=== PATIENT | male | born 1935 | race African-American/Black ===

== ENCOUNTER 2017-01-09 11:26 | Inpatient (IN) | payer OTHER ==
[2017-01-09] VITALS (21 sets, daily range): BP systolic 73–140; BP diastolic 36–90
[~2017-01-09] VITALS: Ht 177.8 cm; Wt 71.0 kg
[~2017-01-09 11:26] MED LIST: GLIPIZIDE XL5 MG PO; GLUCOPHAGE500 MG PO; GLUCOTROL5 MG PO; HYDROCHLOROTHIA25 MG PO; INVOKANA300 MG PO; IRON325 MG PO; JANUVIA25 M1 PO; METOPROLOL SUCC50 MG PO; METRONIDAZOLE500 MG PO; NORVASC5 MG PO; ONGLYZA5 MG PO; ROCEPHIN 2 GM VI2 GM IV; VITAMIN D31000 UNI2 PO; Vitamin B-12 PO
[2017-01-09 13:12] LABS: CHLORIDE 98 mEq/L (99-109); POTASSIUM 3.3 mEq/L (3.7-5.4); SODIUM 132 mEq/L (136-147)
[2017-01-09 13:14] LABS: GLUCOSE 176 mg/dL (70-99)
[2017-01-09 13:15] LABS: ANION GAP 13 MEQ/L (2-14)
[2017-01-09 13:16] LABS: TOTAL BILIRUBIN 0.5 mg/dL (0.0-1.0)
[2017-01-09 13:17] LABS: ALKALINE PHOSPHATASE 64 IU/L (3-129)
[2017-01-09 13:18] LABS: GFR ESTIMATE (CALCULATED) > 59 mL/min/
[2017-01-09 13:19] LABS: HEMATOCRIT 28.3 % (38.0-50.0); MCH 21.9 PG (29.0-34.0); MCHC 32.2 G/DL (30.0-36.0); MCV 68.2 FL (86-99); MEAN PLAT.VOLUME 8.9 uM^3 (9.0-12.4); PLATELET COUNT 481 K/uL (156-360); RBC DIS.WIDTH-CV 17.4 % (11.8-14.6); RBC DIS.WIDTH-SD 42.4 % (39-53); RED BLOOD COUNT 4.15 M/uL (4.00-5.50); UREA NITROGEN (BUN) 12 mg/dL (9-23); WHITE BLOOD COUNT 12.4 K/uL (4.1-10.2)
[2017-01-09 13:21] LABS: CREATINE KINASE 579 IU/L (1-294); TOTAL CK 579 IU/L (1-294)
[2017-01-09 13:23] LABS: TROP-I INTERPRETATION POSITIVE
[2017-01-09 13:27] LABS: CK-MB 39.8 ng/mL (0.0-4.9)
[2017-01-09 13:29] LABS: TROPONIN-I 14.58 ng/mL (0.0-0.30)
[2017-01-09 15:27] LABS: METH RESISTANT S AUREUS PCR NEGATIVE (NEGATIVE); PROBE CHECK PASS; SPECIMEN PROCESSING CONTROL PASS
[2017-01-09] MEDS ORDERED: TRESIBA FL100 UNIT/1 SC (15:54)
[2017-01-09] MEDS ORDERED: JANUVIA100 MG PO (15:54)
[2017-01-09 17:15] LABS: TROP-I INTERPRETATION POSITIVE; TROPONIN-I 32.51 ng/mL (0.0-0.30)
[2017-01-09 17:57] LABS: POINT-OF-CARE METER ID UU14314083
[2017-01-09 22:49] LABS: ANION GAP 7 MEQ/L (2-14); CHLORIDE 100 MEQ/L (99-109); POTASSIUM 3.9 MEQ/L (3.7-5.4); SAMPLE HEMOLYSIS CHECK 0; SAMPLE ICTERIC CHECK 0; SAMPLE LIPEMIA CHECK 0; SODIUM 130 MEQ/L (136-147)
[2017-01-09 22:54] LABS: GFR ESTIMATE (CALCULATED) > 59 mL/min/; GLUCOSE 232 mg/dL (70-99); UREA NITROGEN (BUN) 16 mg/dL (9-23)
[2017-01-09 23:15] LABS: TROP-I INTERPRETATION POSITIVE; TROPONIN-I 29.72 ng/mL (0.0-0.30)
[2017-01-10] VITALS (32 sets, daily range): BP systolic 90–134; BP diastolic 58–81
[2017-01-10 06:38] LABS: ANION GAP 8 MEQ/L (2-14); CHLORIDE 102 MEQ/L (99-109); GFR ESTIMATE (CALCULATED) > 59 mL/min/; GLUCOSE 154 mg/dL (70-99); HDL CHOLESTEROL 42 MG/DL (Desirable>=40); LDL CHOLESTEROL 89 mg/dL (Desirable<100); NON-HDL CHOLESTEROL 100 mg/dL (Desirable<160); POTASSIUM 3.9 MEQ/L (3.7-5.4); SAMPLE HEMOLYSIS CHECK 0; SAMPLE ICTERIC CHECK 0; SAMPLE LIPEMIA CHECK 0; SODIUM 133 MEQ/L (136-147); TOTAL CHOLESTEROL 142 mg/dL (Desirable<200); TRIGLYCERIDES 56 MG/DL (Normal: <150); UREA NITROGEN (BUN) 15 mg/dL (9-23)
[2017-01-10 06:58] LABS: TROP-I INTERPRETATION POSITIVE; TROPONIN-I 29.32 ng/mL (0.0-0.30)
[2017-01-10 07:08] LABS: EOSINOPHIL (%) 0.1 % (0-5); HEMATOCRIT 25.8 % (38.0-50.0); IMMATURE GRANULOCYTE (%) 0.6 % (0.0-0.7); IMMATURE GRANULOCYTE COUNT 0.1 K/uL; INSTRUMENT ABS NEUTROPHIL CT 13.4 K/uL; LYMPHOCYTE COUNT 1.4 K/uL (1.0-2.8); MCH 22.3 PG (29.0-34.0); MCHC 32.2 G/DL (30.0-36.0); MCV 69.2 FL (86-99); MEAN PLAT.VOLUME 8.4 uM^3 (9.0-12.4); MONOCYTE COUNT 1.3 K/uL (0-0.8); NEUTROPHIL (%) 82.4 % (45-76); NEUTROPHIL COUNT 13.4 K/uL (1.8-6.4); PLATELET COUNT 426 K/uL (156-360); RBC DIS.WIDTH-CV 17.7 % (11.8-14.6); RBC DIS.WIDTH-SD 44.1 % (39-53); RED BLOOD COUNT 3.73 M/uL (4.00-5.50); WHITE BLOOD COUNT 16.3 K/uL (4.1-10.2)
[2017-01-10 07:43] LABS: POINT-OF-CARE METER ID UU13113803
[2017-01-10 08:04] LABS: Estimated Average Glucose 169 mg/dL (70-123); HEMOGLOBIN A1c (GLYCOHEMOGLOB) 7.5 % HGB (Below 5.7)
[2017-01-10 11:45] LABS: POINT-OF-CARE METER ID UU14208751
[2017-01-10 15:23] LABS: POINT-OF-CARE METER ID UU14208751
[2017-01-10 22:23] LABS: POINT-OF-CARE METER ID UU14208751
[2017-01-11] VITALS (12 sets, daily range): BP systolic 81–122; BP diastolic 55–74
[2017-01-11 05:10] LABS: CHLORIDE 107 mEq/L (99-109); POTASSIUM 4.2 mEq/L (3.7-5.4); SODIUM 135 mEq/L (136-147)
[2017-01-11 05:12] LABS: GLUCOSE 138 mg/dL (70-99)
[2017-01-11 05:13] LABS: ANION GAP 12 MEQ/L (2-14); HEMATOCRIT 32.6 % (38.0-50.0); MCH 21.8 PG (29.0-34.0); MCV 70.4 FL (86-99); RBC DIS.WIDTH-CV 18.2 % (11.8-14.6); RBC DIS.WIDTH-SD 45.6 % (39-53)
[2017-01-11 05:16] LABS: GFR ESTIMATE (CALCULATED) > 59 mL/min/
[2017-01-11 05:17] LABS: UREA NITROGEN (BUN) 22 mg/dL (9-23)
[2017-01-11 05:42] LABS: RED BLOOD COUNT 4.63 M/uL (4.00-5.50)
[2017-01-11 05:56] LABS: MEAN PLAT.VOLUME 8.8 uM^3 (9.0-12.4); PLAT.SUFFICIENCY ADEQUATE; PLATELET COUNT 382 K/uL (156-360)
[2017-01-11 07:02] LABS: BILIRUBIN NEGATIVE; BLOOD NEGATIVE; COLOR YELLOW ((YELLOW)); GLUCOSE (STRIP) NEGATIVE; KETONES NEGATIVE; LEUKOCYTES NEGATIVE; NITRITE NEGATIVE; PROTEIN (STRIP) 30; SPECIFIC GRAVITY 1.026 (1.000-1.030)
[2017-01-11 07:05] LABS: ADD MIUA? NO; UCUL ADDED? NO
[2017-01-11 12:21] LABS: POINT-OF-CARE METER ID UU14208751
[2017-01-11 16:02] LABS: POINT-OF-CARE METER ID UU14208751
[2017-01-11 20:44] LABS: POINT-OF-CARE METER ID UU13113781
[2017-01-12] VITALS (7 sets, daily range): BP systolic 98–128; BP diastolic 56–94
[2017-01-12 06:34] LABS: HEMATOCRIT 22.4 % (38.0-50.0); MCH 21.5 PG (29.0-34.0); MCHC 31.7 G/DL (30.0-36.0); MCV 67.9 FL (86-99); MEAN PLAT.VOLUME 8.6 uM^3 (9.0-12.4); PLATELET COUNT 399 K/uL (156-360); RBC DIS.WIDTH-CV 17.5 % (11.8-14.6); RBC DIS.WIDTH-SD 42.9 % (39-53); WHITE BLOOD COUNT 8.6 K/uL (4.1-10.2)
[2017-01-12 06:52] LABS: ANION GAP 8 MEQ/L (2-14); CHLORIDE 107 MEQ/L (99-109); GFR ESTIMATE (CALCULATED) > 59 mL/min/; GLUCOSE 128 mg/dL (70-99); POTASSIUM 3.6 MEQ/L (3.7-5.4); SAMPLE HEMOLYSIS CHECK 0; SAMPLE ICTERIC CHECK 0; SAMPLE LIPEMIA CHECK 0; SODIUM 136 MEQ/L (136-147); UREA NITROGEN (BUN) 24 mg/dL (9-23)
[2017-01-12 07:44] LABS: POINT-OF-CARE METER ID UU13113698
[2017-01-12 11:27] LABS: POINT-OF-CARE METER ID UU14314088
[2017-01-12 16:49] LABS: POINT-OF-CARE METER ID UU14314088
[2017-01-12 21:20] LABS: POINT-OF-CARE METER ID UU13113698
[2017-01-13 04:31] VITALS: BP 120/69
[2017-01-13 05:39] LABS: HEMATOCRIT 22.4 % (38.0-50.0); MCH 21.7 PG (29.0-34.0); MCHC 31.7 G/DL (30.0-36.0); MCV 68.5 FL (86-99); MEAN PLAT.VOLUME 8.4 uM^3 (9.0-12.4); PLATELET COUNT 392 K/uL (156-360); RBC DIS.WIDTH-CV 17.5 % (11.8-14.6); RBC DIS.WIDTH-SD 43.4 % (39-53); RED BLOOD COUNT 3.27 M/uL (4.00-5.50); WHITE BLOOD COUNT 7.4 K/uL (4.1-10.2)
[2017-01-13 05:47] LABS: ANION GAP 4 MEQ/L (2-14); CHLORIDE 108 MEQ/L (99-109); GFR ESTIMATE (CALCULATED) > 59 mL/min/; GLUCOSE 135 mg/dL (70-99); POTASSIUM 3.5 MEQ/L (3.7-5.4); SAMPLE HEMOLYSIS CHECK 0; SAMPLE ICTERIC CHECK 0; SAMPLE LIPEMIA CHECK 0; SODIUM 133 MEQ/L (136-147); UREA NITROGEN (BUN) 22 mg/dL (9-23)
[2017-01-13 07:35] VITALS: BP 114/65
[2017-01-13 07:55] LABS: POINT-OF-CARE METER ID UU14314088
[2017-01-13] MEDS ORDERED: LOPRESSOR25 MG PO ×2 (10:47→13:25)
[2017-01-13] MEDS ORDERED: ASPIR-LOW81 MG PO (10:47)
[2017-01-13] MEDS ORDERED: FERROUS SULFAT325 MG PO (10:47)
[2017-01-13] MEDS ORDERED: CLOPIDOGREL75 MG PO (10:47)
[2017-01-13] MEDS ORDERED: ATORVASTATIN CA80 MG PO (10:47)
[2017-01-13] MEDS ORDERED: NITROSTAT0.4 MG SL (10:47)
[2017-01-13 11:39] LABS: POINT-OF-CARE METER ID UU14314088
[2017-01-13 12:30] VITALS: BP 119/62
== END 2017-01-13 15:00 | disposition home health service (06) | DRG 247 ==
LOC: EME 11:26 → EDBD 11:26 → CATH 12:18 → EME 12:18 → ENRESERV 12:51 → 4EAST 13:06 → 2SOUTH 13:06 → 4WEST 13:06 → ENRESERV 01-11 14:42 → 4EAST 01-11 17:41
PROVIDERS: Internal Medicine Cardiovascular Disease
DX: I21.19 ST elevation (STEMI) myocardial infarction involving other coronary artery of inferior wall (principal); I25.10 Atherosclerotic heart disease of native coronary artery without angina pectoris; I12.9 Hypertensive chronic kidney disease with stage 1 through stage 4 chronic kidney disease, or unspecified chronic kidney disease; N18.3 Chronic kidney disease, stage 3 (moderate); D51.9 Vitamin B12 deficiency anemia, unspecified; E11.22 Type 2 diabetes mellitus with diabetic chronic kidney disease; D50.9 Iron deficiency anemia, unspecified; E78.5 Hyperlipidemia, unspecified; E83.51 Hypocalcemia; I44.1 Atrioventricular block, second degree; E83.39 Other disorders of phosphorus metabolism; I95.9 Hypotension, unspecified
CPT/HCPCS: 71010; 71020; 80048; 80048 91; 80053; 80061; 81003; 82550; 82553; 82948; 83036; 83735; 84100; 84443; 84484; 85025; 85027; 85347; 87641; 90686; 93005; 93306; 94799; 99281; 99285; C1725; C1769; C1874; C1887; J0153; J1644; J1815; J2250; J2405; J3010; J3246; J7030; J7040

== ENCOUNTER 2017-05-11 14:34 | Inpatient (IN) | payer OTHER ==
[~2017-05-11] VITALS: Ht 177.8 cm; Wt 69.7 kg
[~2017-05-11 14:34] MED LIST changes: +ASPIR-LOW81 MG PO; +ATORVASTATIN CA80 MG PO; +CLOPIDOGREL75 MG PO; +FERROUS SULFAT325 MG PO; +JANUVIA100 MG PO; +LOPRESSOR25 MG PO; +NITROSTAT0.4 MG SL; +TRESIBA FL100 UNIT/1 SC
[2017-05-11 15:46] LABS: HEMATOCRIT 18.1 % (38.0-50.0); MCH 18.7 PG (29.0-34.0); MCHC 29.3 G/DL (30.0-36.0); MCV 63.7 FL (86-99); NRBC (%) 0.3 /100 WBC (0-0); PLATELET COUNT 475 K/uL (156-360); RBC DIS.WIDTH-CV 18.6 % (11.8-14.6); RBC DIS.WIDTH-SD 41.5 % (39-53); RED BLOOD COUNT 2.84 M/uL (4.00-5.50)
[2017-05-11 15:47] LABS: HEMOGLOBIN 5.3 G/DL (12.5-16.6); INTER. NORMALIZED RATIO 1.3
[2017-05-11 15:49] LABS: ALBUMIN 2.3 g/dL (3.2-4.8)
[2017-05-11 15:50] LABS: CHLORIDE 112 mEq/L (99-109); POTASSIUM 4.3 mEq/L (3.7-5.4); PTT 31.6 SEC (25-37); SODIUM 139 mEq/L (136-147)
[2017-05-11 15:52] LABS: GLUCOSE 114 mg/dL (70-99); TOTAL PROTEIN 6.1 g/dL (6.4-8.3)
[2017-05-11 15:54] LABS: TOTAL BILIRUBIN 0.2 mg/dL (0.0-1.0)
[2017-05-11 15:55] LABS: ALKALINE PHOSPHATASE 90 IU/L (3-129); CREATININE 1.5 mg/dL (0.6-1.3); GFR ESTIMATE (CALCULATED) 58 mL/min/ (58.99-99999)
[2017-05-11 15:57] LABS: AST (GOT) 27 IU/L (2-34); UREA NITROGEN (BUN) 18 mg/dL (9-23)
[2017-05-11 15:58] LABS: ALT (GPT) 16 IU/L (3-49)
[2017-05-11 16:01] LABS: TROP-I INTERPRETATION NEGATIVE; TROPONIN-I 0.03 ng/mL (0.0-0.30)
[2017-05-11 17:09] VITALS: BP 145/81
[2017-05-11 17:31] VITALS: BP 130/61
[2017-05-11 19:38] VITALS: BP 142/79
[2017-05-11 19:58] VITALS: BP 140/80
[2017-05-11 20:58] VITALS: BP 150/94
[2017-05-11 21:23] VITALS: BP 113/84
[2017-05-11 23:07] LABS: HEMATOCRIT 25.7 % (38.0-50.0)
[2017-05-11 23:09] LABS: HEMOGLOBIN 7.9 G/DL (12.5-16.6); MCV 71.4 FL (86-99)
[2017-05-12 05:53] LABS: HEMATOCRIT 24.6 % (38.0-50.0); HEMOGLOBIN 7.8 G/DL (12.5-16.6); MCHC 31.7 G/DL (30.0-36.0); MCV 69.5 FL (86-99); NRBC (%) 0.4 /100 WBC (0-0); PLATELET COUNT 373 K/uL (156-360); RBC DIS.WIDTH-CV 23.5 % (11.8-14.6); RBC DIS.WIDTH-SD 56.7 % (39-53); RED BLOOD COUNT 3.54 M/uL (4.00-5.50); WHITE BLOOD COUNT 7.3 K/uL (4.1-10.2)
[2017-05-12 06:01] LABS: CHLORIDE 117 mEq/L (99-109); POTASSIUM 3.8 mEq/L (3.7-5.4); SODIUM 141 mEq/L (136-147)
[2017-05-12 06:03] LABS: GLUCOSE 85 mg/dL (70-99)
[2017-05-12 06:06] LABS: CREATININE 1.3 mg/dL (0.6-1.3); GFR ESTIMATE (CALCULATED) > 59 mL/min/ (58.99-99999)
[2017-05-12 06:07] LABS: UREA NITROGEN (BUN) 17 mg/dL (9-23)
[2017-05-12] MEDS ORDERED: CLOPIDOGREL75 MG PO (08:33)
[2017-05-12] MEDS ORDERED: LOPRESSOR25 MG PO (08:34)
[2017-05-12] MEDS ORDERED: HYDROCHLOROTHIA25 MG PO (08:34)
[2017-05-12] MEDS ORDERED: ADULT ASPIRIN R81 MG PO (08:34)
[2017-05-12 10:22] VITALS: BP 142/84
[2017-05-12 10:31] VITALS: BP 146/76
[2017-05-12 10:46] VITALS: BP 151/87
[2017-05-12 11:53] VITALS: BP 140/82
[2017-05-12 14:44] LABS: HEMATOCRIT 33.5 % (38.0-50.0); HEMOGLOBIN 10.3 G/DL (12.5-16.6); MCH 22.6 PG (29.0-34.0); MCHC 30.7 G/DL (30.0-36.0); MCV 73.6 FL (86-99); NRBC (%) 0.4 /100 WBC (0-0); PLATELET COUNT 384 K/uL (156-360); RBC DIS.WIDTH-SD 62.1 % (39-53); RED BLOOD COUNT 4.55 M/uL (4.00-5.50)
[2017-05-12 18:37] LABS: CHLORIDE 116 MEQ/L (99-109); POTASSIUM 4.2 MEQ/L (3.7-5.4); SODIUM 141 MEQ/L (136-147)
[2017-05-12 18:43] LABS: CREATININE 1.3 MG/DL (0.6-1.3); GFR ESTIMATE (CALCULATED) > 59 mL/min/ (58.99-99999); GLUCOSE 81 mg/dL (70-99); UREA NITROGEN (BUN) 15 mg/dL (9-23)
[2017-05-12 19:22] LABS: IRON 31 MCG/DL (35-150); TRANSFERRIN (TIBC) 192.2 mg/dL (215-380); TRANSFERRIN SATUR. 16 % (20-55)
[2017-05-12 19:50] VITALS: BP 152/92
[2017-05-12 20:20] LABS: FERRITIN 31 NG/ML (22-322)
[2017-05-12 20:32] LABS: HEMATOCRIT 31.1 % (38.0-50.0); HEMOGLOBIN 9.7 G/DL (12.5-16.6); MCH 22.5 PG (29.0-34.0); MCHC 31.2 G/DL (30.0-36.0); MCV 72.2 FL (86-99); NRBC (%) 0.4 /100 WBC (0-0); PLATELET COUNT 385 K/uL (156-360); RBC DIS.WIDTH-CV 23.7 % (11.8-14.6); RBC DIS.WIDTH-SD 60.9 % (39-53); RED BLOOD COUNT 4.31 M/uL (4.00-5.50); WHITE BLOOD COUNT 7.7 K/uL (4.1-10.2)
[2017-05-13 00:16] VITALS: BP 114/63
[2017-05-13 04:17] VITALS: BP 121/72
[2017-05-13 09:00] VITALS: BP 158/84
[2017-05-13 09:46] LABS: BASOPHIL (%) 0.4 % (0-1); EOSINOPHIL (%) 2.8 % (0-5); EOSINOPHIL COUNT 0.3 K/uL (0-0.3); HEMATOCRIT 34.5 % (38.0-50.0); HEMOGLOBIN 10.6 G/DL (12.5-16.6); IMMATURE GRANULOCYTE (%) 0.3 % (0.0-0.7); LYMPHOCYTE (%) 13.7 % (15-42); LYMPHOCYTE COUNT 1.4 K/uL (1.0-2.8); MCH 22.3 PG (29.0-34.0); MCHC 30.7 G/DL (30.0-36.0); MCV 72.5 FL (86-99); MONOCYTE (%) 6.9 % (3-12); MONOCYTE COUNT 0.7 K/uL (0-0.8); NEUTROPHIL (%) 75.9 % (45-76); NEUTROPHIL COUNT 7.5 K/uL (1.8-6.4); NRBC (%) 0.3 /100 WBC (0-0); PLATELET COUNT 446 K/uL (156-360); RBC DIS.WIDTH-CV 24.1 % (11.8-14.6); RBC DIS.WIDTH-SD 60.8 % (39-53); RED BLOOD COUNT 4.76 M/uL (4.00-5.50); WHITE BLOOD COUNT 9.8 K/uL (4.1-10.2)
[2017-05-13 09:59] LABS: CHLORIDE 109 MEQ/L (99-109); CREATININE 1.4 MG/DL (0.6-1.3); GFR ESTIMATE (CALCULATED) > 59 mL/min/ (58.99-99999); SODIUM 135 MEQ/L (136-147); UREA NITROGEN (BUN) 14 mg/dL (9-23)
[2017-05-13 10:04] LABS: GLUCOSE 127 mg/dL (70-99)
[2017-05-13 11:33] VITALS: BP 137/84
[2017-05-13 16:28] VITALS: BP 101/70
[2017-05-13 17:30] LABS: BASOPHIL (%) 0.2 % (0-1); EOSINOPHIL (%) 1.3 % (0-5); EOSINOPHIL COUNT 0.1 K/uL (0-0.3); HEMATOCRIT 31.4 % (38.0-50.0); HEMOGLOBIN 9.8 G/DL (12.5-16.6); IMMATURE GRANULOCYTE (%) 0.3 % (0.0-0.7); LYMPHOCYTE (%) 15.1 % (15-42); LYMPHOCYTE COUNT 1.5 K/uL (1.0-2.8); MCH 22.6 PG (29.0-34.0); MCHC 31.2 G/DL (30.0-36.0); MCV 72.4 FL (86-99); MONOCYTE (%) 5.7 % (3-12); MONOCYTE COUNT 0.6 K/uL (0-0.8); NEUTROPHIL (%) 77.4 % (45-76); NEUTROPHIL COUNT 7.5 K/uL (1.8-6.4); NRBC (%) 0.4 /100 WBC (0-0); PLATELET COUNT 407 K/uL (156-360); RBC DIS.WIDTH-SD 61.2 % (39-53); RED BLOOD COUNT 4.34 M/uL (4.00-5.50); WHITE BLOOD COUNT 9.7 K/uL (4.1-10.2)
[2017-05-13 20:05] VITALS: BP 104/66
[2017-05-14] VITALS (7 sets, daily range): BP systolic 108–143; BP diastolic 67–91
[2017-05-14 05:06] LABS: BASOPHIL (%) 0.3 % (0-1); EOSINOPHIL (%) 3.1 % (0-5); EOSINOPHIL COUNT 0.2 K/uL (0-0.3); HEMATOCRIT 29.4 % (38.0-50.0); HEMOGLOBIN 9.4 G/DL (12.5-16.6); IMMATURE GRANULOCYTE (%) 0.4 % (0.0-0.7); LYMPHOCYTE (%) 17.7 % (15-42); LYMPHOCYTE COUNT 1.3 K/uL (1.0-2.8); MCH 22.8 PG (29.0-34.0); MCV 71.2 FL (86-99); MONOCYTE (%) 6.5 % (3-12); MONOCYTE COUNT 0.5 K/uL (0-0.8); NEUTROPHIL COUNT 5.3 K/uL (1.8-6.4); NRBC (%) 0.3 /100 WBC (0-0); PLATELET COUNT 366 K/uL (156-360); RBC DIS.WIDTH-SD 60.8 % (39-53); RED BLOOD COUNT 4.13 M/uL (4.00-5.50); WHITE BLOOD COUNT 7.4 K/uL (4.1-10.2)
[2017-05-14 05:14] LABS: CHLORIDE 109 mEq/L (99-109); POTASSIUM 3.8 mEq/L (3.7-5.4); SODIUM 136 mEq/L (136-147)
[2017-05-14 05:16] LABS: GLUCOSE 114 mg/dL (70-99)
[2017-05-14 05:20] LABS: CREATININE 1.3 mg/dL (0.6-1.3); GFR ESTIMATE (CALCULATED) > 59 mL/min/ (58.99-99999)
[2017-05-14 05:21] LABS: UREA NITROGEN (BUN) 14 mg/dL (9-23)
[2017-05-15] VITALS (7 sets, daily range): BP systolic 105–133; BP diastolic 60–84
[2017-05-15 07:14] LABS: ALBUMIN 1.9 G/DL (3.2-4.8); ALKALINE PHOSPHATASE 78 IU/L (3-129); ALT (GPT) 9 IU/L (3-49); AST (GOT) 19 IU/L (2-34); CHLORIDE 106 MEQ/L (99-109); CREATININE 1.4 MG/DL (0.6-1.3); GFR ESTIMATE (CALCULATED) > 59 mL/min/ (58.99-99999); GLUCOSE 87 mg/dL (70-99); POTASSIUM 3.8 MEQ/L (3.7-5.4); SODIUM 134 MEQ/L (136-147); TOTAL PROTEIN 5.1 G/DL (6.4-8.3); UREA NITROGEN (BUN) 13 mg/dL (9-23)
[2017-05-15 07:17] LABS: BASOPHIL (%) 0.1 % (0-1); EOSINOPHIL (%) 2.9 % (0-5); EOSINOPHIL COUNT 0.2 K/uL (0-0.3); HEMATOCRIT 31.5 % (38.0-50.0); HEMOGLOBIN 9.9 G/DL (12.5-16.6); IMMATURE GRANULOCYTE (%) 0.6 % (0.0-0.7); LYMPHOCYTE (%) 14.3 % (15-42); LYMPHOCYTE COUNT 1.1 K/uL (1.0-2.8); MCH 22.7 PG (29.0-34.0); MCHC 31.4 G/DL (30.0-36.0); MCV 72.1 FL (86-99); MONOCYTE (%) 7.1 % (3-12); MONOCYTE COUNT 0.6 K/uL (0-0.8); NEUTROPHIL COUNT 5.9 K/uL (1.8-6.4); PLATELET COUNT 399 K/uL (156-360); RBC DIS.WIDTH-CV 25.4 % (11.8-14.6); RBC DIS.WIDTH-SD 62.4 % (39-53); RED BLOOD COUNT 4.37 M/uL (4.00-5.50); WHITE BLOOD COUNT 7.9 K/uL (4.1-10.2)
[2017-05-15 07:20] LABS: TOTAL BILIRUBIN 0.4 MG/DL (0.0-1.0)
[2017-05-16 07:16] VITALS: BP 136/73
[2017-05-16 07:37] LABS: BASOPHIL (%) 0.1 % (0-1); EOSINOPHIL (%) 2.7 % (0-5); EOSINOPHIL COUNT 0.2 K/uL (0-0.3); IMMATURE GRANULOCYTE (%) 0.5 % (0.0-0.7); LYMPHOCYTE (%) 15.1 % (15-42); LYMPHOCYTE COUNT 1.1 K/uL (1.0-2.8); MCH 22.4 PG (29.0-34.0); MCV 72.1 FL (86-99); MONOCYTE (%) 8.1 % (3-12); MONOCYTE COUNT 0.6 K/uL (0-0.8); NEUTROPHIL (%) 73.5 % (45-76); NEUTROPHIL COUNT 5.5 K/uL (1.8-6.4); PLATELET COUNT 351 K/uL (156-360); RBC DIS.WIDTH-CV 25.2 % (11.8-14.6); RBC DIS.WIDTH-SD 63.3 % (39-53); RED BLOOD COUNT 4.02 M/uL (4.00-5.50); WHITE BLOOD COUNT 7.5 K/uL (4.1-10.2)
[2017-05-16 07:57] LABS: ALBUMIN 1.9 G/DL (3.2-4.8); ALKALINE PHOSPHATASE 70 IU/L (3-129); ALT (GPT) 7 IU/L (3-49); AST (GOT) 19 IU/L (2-34); CHLORIDE 109 MEQ/L (99-109); CREATININE 1.4 MG/DL (0.6-1.3); GFR ESTIMATE (CALCULATED) > 59 mL/min/ (58.99-99999); SODIUM 136 MEQ/L (136-147); TOTAL PROTEIN 4.8 G/DL (6.4-8.3); UREA NITROGEN (BUN) 13 mg/dL (9-23)
[2017-05-16 07:59] LABS: GLUCOSE 138 mg/dL (70-99); TOTAL BILIRUBIN 0.3 MG/DL (0.0-1.0)
[2017-05-16] MEDS ORDERED: FERROUS SULFAT325 MG PO (11:23)
[2017-05-16] MEDS ORDERED: DUONEB 2.5-0.5 M3 ML AEROSOL (11:23)
[2017-05-16] MEDS ORDERED: PANTOPRAZOLE SO40 MG PO (11:24)
[2017-05-16] MEDS ORDERED: NOVOLOG 10100 UNITS/ SC (11:24)
[2017-05-16] MEDS ORDERED: LOPRESSOR25 MG PO (11:24)
[2017-05-16] MEDS ORDERED: SUCRALFATE1 GM/10 ML PO (11:24)
[2017-05-16 12:30] VITALS: BP 167/92
[2017-05-16 12:36] LABS: INTER. NORMALIZED RATIO 1.3
[2017-05-16 12:39] LABS: PTT 33.7 SEC (25-37)
== END 2017-05-16 14:14 | disposition short-term general hospital (02) | DRG 356 ==
LOC: EME 14:34 → 4EAST 16:33 → EDOF 16:33 → ENRESERV 16:38 → 4EAST 05-12 10:04 → ENRESERV 05-14 16:07 → 2EAST 05-14 16:46
PROVIDERS: Emergency Medicine; Hospitalist; Internal Medicine; Specialist
PROC: 30233N1 Transfusion of Nonautologous Red Blood Cells into Peripheral Vein, Percutaneous Approach (ICD-10-PCS; 2017-05-11)
PROC: 0W3P8ZZ Control Bleeding in Gastrointestinal Tract, Via Natural or Artificial Opening Endoscopic (ICD-10-PCS; principal; 2017-05-13)
PROC: 0DBL8ZZ Excision of Transverse Colon, Via Natural or Artificial Opening Endoscopic (ICD-10-PCS; principal; 2017-05-13)
PROC: 0DBK8ZZ Excision of Ascending Colon, Via Natural or Artificial Opening Endoscopic (ICD-10-PCS; principal; 2017-05-13)
PROC: 0DBN8ZX Excision of Sigmoid Colon, Via Natural or Artificial Opening Endoscopic, Diagnostic (ICD-10-PCS; principal; 2017-05-13)
PROC: 06H03DZ Insertion of Intraluminal Device into Inferior Vena Cava, Percutaneous Approach (ICD-10-PCS; 2017-05-14)
PROC: B5191ZZ Fluoroscopy of Inferior Vena Cava using Low Osmolar Contrast (ICD-10-PCS; 2017-05-14)
DX: C18.3 Malignant neoplasm of hepatic flexure (principal); I26.99 Other pulmonary embolism without acute cor pulmonale; C78.7 Secondary malignant neoplasm of liver and intrahepatic bile duct; I82.403 Acute embolism and thrombosis of unspecified deep veins of lower extremity, bilateral; I25.10 Atherosclerotic heart disease of native coronary artery without angina pectoris; K63.3 Ulcer of intestine; K56.609 Unspecified intestinal obstruction, unspecified as to partial versus complete obstruction; N18.3 Chronic kidney disease, stage 3 (moderate); K92.2 Gastrointestinal hemorrhage, unspecified; E87.2 Acidosis; N17.9 Acute kidney failure, unspecified; D62 Acute posthemorrhagic anemia; T18.2XXA Foreign body in stomach, initial encounter; E11.22 Type 2 diabetes mellitus with diabetic chronic kidney disease; D12.4 Benign neoplasm of descending colon; K63.5 Polyp of colon; K21.9 Gastro-esophageal reflux disease without esophagitis; K44.9 Diaphragmatic hernia without obstruction or gangrene; M71.21 Synovial cyst of popliteal space [Baker], right knee; E78.5 Hyperlipidemia, unspecified; R97.20 Elevated prostate specific antigen [PSA]; N28.1 Cyst of kidney, acquired; I12.9 Hypertensive chronic kidney disease with stage 1 through stage 4 chronic kidney disease, or unspecified chronic kidney disease; Z95.5 Presence of coronary angioplasty implant and graft; Z87.891 Personal history of nicotine dependence; I25.2 Old myocardial infarction; K64.8 Other hemorrhoids; Z79.02 Long term (current) use of antithrombotics/antiplatelets; Z79.82 Long term (current) use of aspirin; Z86.718 Personal history of other venous thrombosis and embolism; Z83.3 Family history of diabetes mellitus; Z82.49 Family history of ischemic heart disease and other diseases of the circulatory system
CPT/HCPCS: 36415; 71045; 71250; 74176; 74177; 78582; 80048; 80048 91; 80053; 81003; 82150; 82378; 82728; 82948; 83036; 83540; 83690; 83880 GA; 84466; 84484; 85014; 85018; 85025; 85025 91; 85027; 85610; 85730; 86850; 86900; 86901; 86920; 87177; 87493; 87506; 88305; 93005; 93306; 93970; 97530 GP; 99202; 99281; 99285; A9540; A9567; C1753; C1769; C9113; J0690; J1644; J7030; J7070; J7120; P9016

== ENCOUNTER 2017-10-09 19:41 | Inpatient (IN) | payer OTHER ==
[~2017-10-09] VITALS: Ht 177.8 cm; Wt 71.9 kg
[~2017-10-09 19:41] MED LIST changes: +ADULT ASPIRIN R81 MG PO; +DUONEB 2.5-0.5 M3 ML AEROSOL; +LOPERAMIDE2 MG PO; +NOVOLOG 10100 UNITS/ SC; +PANTOPRAZOLE SO40 MG PO; +SUCRALFATE1 GM/10 ML PO
[2017-10-09 21:26] LABS: BASOPHIL (%) 0.6 % (0-1); EOSINOPHIL (%) 4.7 % (0-5); EOSINOPHIL COUNT 0.2 K/uL (0-0.3); IMMATURE GRANULOCYTE (%) 1.4 % (0.0-0.7); LYMPHOCYTE (%) 25.6 % (15-42); LYMPHOCYTE COUNT 1.3 K/uL (1.0-2.8); MCH 25.6 PG (29.0-34.0); MCHC 32.3 G/DL (30.0-36.0); MCV 79.5 FL (86-99); MONOCYTE (%) 16.6 % (3-12); MONOCYTE COUNT 0.8 K/uL (0-0.8); NEUTROPHIL (%) 51.1 % (45-76); NEUTROPHIL COUNT 2.5 K/uL (1.8-6.4); NRBC (%) 0.4 /100 WBC (0-0); PLATELET COUNT 308 K/uL (156-360); RBC DIS.WIDTH-CV 17.6 % (11.8-14.6); RBC DIS.WIDTH-SD 50.4 % (39-53); WHITE BLOOD COUNT 4.9 K/uL (4.1-10.2)
[2017-10-09 21:30] LABS: CHLORIDE 109 mEq/L (99-109); SODIUM 138 mEq/L (136-147)
[2017-10-09 21:32] LABS: GLUCOSE 152 mg/dL (70-99)
[2017-10-09 21:36] LABS: CREATININE 1.7 mg/dL (0.6-1.3); GFR ESTIMATE (CALCULATED) 50 mL/min/ (58.99-99999); UREA NITROGEN (BUN) 14 mg/dL (9-23)
[2017-10-09 21:42] LABS: TROP-I INTERPRETATION NEGATIVE; TROPONIN-I 0.02 ng/mL (0.0-0.30)
[2017-10-09 21:57] LABS: INTER. NORMALIZED RATIO 1.6
[2017-10-09 22:00] LABS: PTT 31.3 SEC (25-37)
[2017-10-10] MEDS ORDERED: JANUVIA100 MG PO (00:38)
[2017-10-10 01:10] LABS: APPEARANCE SL.HAZY ((CLEAR)); BILIRUBIN NEGATIVE; BLOOD SMALL; COLOR YELLOW ((YELLOW)); GLUCOSE (STRIP) NEGATIVE; KETONES NEGATIVE; LEUKOCYTES MODERATE; NITRITE NEGATIVE; PROTEIN (STRIP) >=500; SPECIFIC GRAVITY 1.031 (1.000-1.030)
[2017-10-10 01:23] LABS: BACTERIA 2+ /HPF; EPITHELIAL CELLS RARE /HPF; MUCUS TRACE /LPF; RED BLOOD CELLS 20-30 /HPF (0-5); WHITE BLOOD CELLS TNTC /HPF (0-5)
[2017-10-10 03:43] VITALS: BP 180/111
[2017-10-10 05:22] VITALS: BP 146/98
[2017-10-10 06:35] LABS: APPEARANCE CLEAR ((CLEAR)); BILIRUBIN NEGATIVE; BLOOD SMALL; COLOR STRAW ((YELLOW)); GLUCOSE (STRIP) NEGATIVE; KETONES NEGATIVE; LEUKOCYTES NEGATIVE; NITRITE NEGATIVE; PROTEIN (STRIP) NEGATIVE; SPECIFIC GRAVITY 1.008 (1.000-1.030); UROBILINOGEN 0.2 MG/DL (0.2-1.0)
[2017-10-10 07:11] LABS: BACTERIA RARE /HPF; EPITHELIAL CELLS NONE SEEN /HPF; MUCUS NONE SEEN /LPF; RED BLOOD CELLS 0-5 /HPF (0-5); UCUL ADDED? YES
[2017-10-10 07:53] LABS: TROP-I INTERPRETATION NEGATIVE; TROPONIN-I 0.02 ng/mL (0.0-0.30)
[2017-10-10 08:16] VITALS: BP 151/78
[2017-10-10 12:59] LABS: TROP-I INTERPRETATION NEGATIVE; TROPONIN-I 0.02 ng/mL (0.0-0.30)
[2017-10-10 19:54] VITALS: BP 127/69
[2017-10-10 23:59] VITALS: BP 120/63
[2017-10-11 03:50] VITALS: BP 126/60
[2017-10-11 05:41] LABS: HEMATOCRIT 29.8 % (38.0-50.0); HEMOGLOBIN 9.9 G/DL (12.5-16.6); MCH 25.6 PG (29.0-34.0); MCHC 33.2 G/DL (30.0-36.0); MCV 77.2 FL (86-99); NRBC (%) 0.9 /100 WBC (0-0); PLATELET COUNT 300 K/uL (156-360); RBC DIS.WIDTH-CV 17.9 % (11.8-14.6); RBC DIS.WIDTH-SD 48.5 % (39-53); RED BLOOD COUNT 3.86 M/uL (4.00-5.50); WHITE BLOOD COUNT 5.3 K/uL (4.1-10.2)
[2017-10-11 06:26] LABS: CHLORIDE 105 MEQ/L (99-109); CREATININE 1.9 MG/DL (0.6-1.3); GFR ESTIMATE (CALCULATED) 44 mL/min/ (58.99-99999); GLUCOSE 108 mg/dL (70-99); POTASSIUM 4.2 MEQ/L (3.7-5.4); SODIUM 139 MEQ/L (136-147); UREA NITROGEN (BUN) 18 mg/dL (9-23)
[2017-10-11 07:50] VITALS: BP 127/87
[2017-10-11 16:04] VITALS: BP 102/59
[2017-10-11 20:13] VITALS: BP 122/71
[2017-10-11 23:43] VITALS: BP 139/73
[2017-10-12 03:30] VITALS: BP 129/70
[2017-10-12 05:40] LABS: HEMATOCRIT 27.8 % (38.0-50.0); HEMOGLOBIN 8.9 G/DL (12.5-16.6); MCH 25.1 PG (29.0-34.0); MCV 78.3 FL (86-99); NRBC (%) 0.7 /100 WBC (0-0); PLATELET COUNT 284 K/uL (156-360); RBC DIS.WIDTH-SD 49.8 % (39-53); RED BLOOD COUNT 3.55 M/uL (4.00-5.50)
[2017-10-12 06:00] LABS: CHLORIDE 105 MEQ/L (99-109); CREATININE 2.2 MG/DL (0.6-1.3); GFR ESTIMATE (CALCULATED) 37 mL/min/ (58.99-99999); GLUCOSE 135 mg/dL (70-99); POTASSIUM 3.4 MEQ/L (3.7-5.4); SODIUM 142 MEQ/L (136-147); UREA NITROGEN (BUN) 18 mg/dL (9-23)
[2017-10-12 07:30] VITALS: BP 141/75
[2017-10-12 11:11] VITALS: BP 140/74
[2017-10-12 15:23] VITALS: BP 131/74
[2017-10-12 17:20] LABS: ALBUMIN 2.9 g/dL (3.2-4.8); CHLORIDE 107 mEq/L (99-109); POTASSIUM 3.8 mEq/L (3.7-5.4); SODIUM 140 mEq/L (136-147)
[2017-10-12 17:26] LABS: CREATININE 2.3 mg/dL (0.6-1.3); GFR ESTIMATE (CALCULATED) 35 mL/min/ (58.99-99999); GLUCOSE 99 mg/dL (70-99); PHOSPHORUS 2.4 mg/dL (2.5-4.9)
[2017-10-12 17:27] LABS: UREA NITROGEN (BUN) 18 mg/dL (9-23)
[2017-10-12 17:29] LABS: URIC ACID 9.3 mg/dL (3.1-9.2)
[2017-10-12 19:48] VITALS: BP 135/66
[2017-10-13] VITALS (7 sets, daily range): BP systolic 129–169; BP diastolic 63–89
[2017-10-13 06:20] LABS: CHLORIDE 104 MEQ/L (99-109); CREATININE 2.1 MG/DL (0.6-1.3); GFR ESTIMATE (CALCULATED) 39 mL/min/ (58.99-99999); GLUCOSE 98 mg/dL (70-99); PHOSPHORUS 2.3 mg/dL (2.5-4.9); POTASSIUM 3.4 MEQ/L (3.7-5.4); SODIUM 140 MEQ/L (136-147); UREA NITROGEN (BUN) 17 mg/dL (9-23)
[2017-10-14 05:06] VITALS: BP 144/89
[2017-10-14 05:59] LABS: CHLORIDE 103 MEQ/L (99-109); CREATININE 1.8 MG/DL (0.6-1.3); GFR ESTIMATE (CALCULATED) 47 mL/min/ (58.99-99999); GLUCOSE 125 mg/dL (70-99); PHOSPHORUS 2.2 mg/dL (2.5-4.9); POTASSIUM 3.9 MEQ/L (3.7-5.4); SODIUM 139 MEQ/L (136-147); UREA NITROGEN (BUN) 16 mg/dL (9-23)
[2017-10-14 08:27] VITALS: BP 160/88
[2017-10-14 11:45] VITALS: BP 138/79
[2017-10-14] MEDS ORDERED: AMLODIPINE BES2.5 MG PO (13:13)
[2017-10-14] MEDS ORDERED: LASIX40 MG PO (13:14)
[2017-10-14 15:48] VITALS: BP 148/75
== END 2017-10-14 16:18 | disposition home health service (06) | DRG 291 ==
LOC: EME 19:41 → EDOF 10-10 01:03 → 4SOUTH 10-10 03:33
PROVIDERS: Hospitalist; Internal Medicine Nephrology; Physician Assistant
DX: I13.0 Hypertensive heart and chronic kidney disease with heart failure and stage 1 through stage 4 chronic kidney disease, or unspecified chronic kidney disease (principal); I50.33 Acute on chronic diastolic (congestive) heart failure; J15.9 Unspecified bacterial pneumonia; N17.9 Acute kidney failure, unspecified; E86.0 Dehydration; E11.22 Type 2 diabetes mellitus with diabetic chronic kidney disease; N18.3 Chronic kidney disease, stage 3 (moderate); C18.3 Malignant neoplasm of hepatic flexure; K21.9 Gastro-esophageal reflux disease without esophagitis; I25.10 Atherosclerotic heart disease of native coronary artery without angina pectoris; E78.5 Hyperlipidemia, unspecified; D64.9 Anemia, unspecified; Z95.5 Presence of coronary angioplasty implant and graft; I25.2 Old myocardial infarction; Z86.718 Personal history of other venous thrombosis and embolism; Z86.711 Personal history of pulmonary embolism; Z79.82 Long term (current) use of aspirin; Z87.891 Personal history of nicotine dependence; Z93.3 Colostomy status; Z90.49 Acquired absence of other specified parts of digestive tract; Z95.1 Presence of aortocoronary bypass graft; Z79.02 Long term (current) use of antithrombotics/antiplatelets
CPT/HCPCS: 71046; 71275; 80048; 80069; 81003; 82948; 83880; 84484; 84550; 85025; 85027; 85610; 85730; 87070; 87077; 87086; 87186; 87205; 93005; 94799; 99281; 99285; J1644; J1815; J1940; J1956; J3370; J7030